=== PATIENT | female | born 1970 | race Hispanic/Latino ===

== ENCOUNTER 2018-12-22 08:52 | Emergency (ER) | payer BC ==
[2018-12-22] MEDS ORDERED: ASPIRIN 325 MG TABLET ONE (09:07)
[2018-12-22 09:33] LABS: INR 0.98 (0.85-1.15); PARTIAL THROMBOPLASTIN TIME 26.1 SEC (26.3-35.5); PROTHROMBIN TIME 10.3 SEC (9.6-11.6)
[2018-12-22 10:00] LABS: BASOPHILS % (AUTO) 0.6 % (0.0-5.0); EOSINOPHILS % (AUTO) 1.4 % (0.0-8.0); HEMATOCRIT 34.8 % (36-48); LYMPHOCYTES % (AUTO) 28.9 % (21.0-51.0); MEAN CORPUSCULAR HEMOGLOBIN 26.8 pg (27.0-33.0); MEAN CORPUSCULAR HGB CONC 32.9 g/dL (32.0-36.0); MEAN CORPUSCULAR VOLUME 81.6 fL (79-99); MONOCYTES % (AUTO) 8.9 % (3.0-13.0); NEUTROPHILS % (AUTO) 60.2 % (40.0-77.0); PLATELET COUNT (AUTO) 179 K/uL (130-400); RED BLOOD CELL COUNT(AUTO) 4.27 MIL/uL (4.00-5.50); RED CELL DISTRIBUTION WIDTH 14.4 % (11.0-15.5); WHITE BLOOD COUNT (AUTO) 4.6 K/uL (4.8-10.8)
== END 2018-12-22 11:30 | disposition home or self-care (01) ==
LOC: EDH 08:52
DX: K21.9 Gastro-esophageal reflux disease without esophagitis (principal); R07.89 Other chest pain; Z98.51 Tubal ligation status
CPT/HCPCS: 36415; 71045; 84484; 85025; 85610; 85730; 93005

== ENCOUNTER 2019-10-17 12:00 | Observation (INO) | payer BC ==
[~2019-10-17] VITALS: Ht 163.8 cm; Wt 70.7 kg
[2019-10-17 13:29] LABS: BASOPHILS % (AUTO) 0.6 % (0.0-5.0); EOSINOPHILS % (AUTO) 1.1 % (0.0-8.0); HEMATOCRIT 35.1 % (36-48); LYMPHOCYTES % (AUTO) 17.7 % (21.0-51.0); MEAN CORPUSCULAR HEMOGLOBIN 25.9 pg (27.0-33.0); MEAN CORPUSCULAR HGB CONC 31.1 g/dL (32.0-36.0); MEAN CORPUSCULAR VOLUME 83.4 fL (79-99); MONOCYTES % (AUTO) 10.1 % (3.0-13.0); NEUTROPHILS % (AUTO) 70.2 % (40.0-77.0); PLATELET COUNT (AUTO) 219 K/uL (130-400); RED BLOOD CELL COUNT(AUTO) 4.21 MIL/uL (4.00-5.50); RED CELL DISTRIBUTION WIDTH 14.1 % (11.0-15.5); WHITE BLOOD COUNT (AUTO) 6.3 K/uL (4.8-10.8)
[2019-10-17 14:13] VITALS: BP 112/57
--- NOTE | 2019-10-17 18:34 | NUR ---
LABS H/H 10.9. 35.[address] ELLIS, NO FURTHER ORDERS.
[2019-10-18] VITALS (20 sets, daily range): BP systolic 102–139; BP diastolic 56–96
[2019-10-18] MEDS ORDERED: LACTATED RINGERS 1000ML 1,000 ML IV SCH (08:00)
[2019-10-18] MEDS: CEFAZOLIN SODIUM 1 GM VIAL IVP ONE ×2 (09:07→13:10)
[2019-10-18] MEDS: CALDOLOR 800MG+NS 250ML 250 ML IV PRN ×2 (09:32→13:00)
[2019-10-18] MEDS ORDERED: DEXAMETHASONE SOD PHOSPHATE 10MG/ML 1ML VIAL ONE (09:56)
[2019-10-18] MEDS ORDERED: PROPOFOL 10 MG/ML 20ML VIAL IV ONE (09:56)
[2019-10-18] MEDS ORDERED: NEOSTIGMINE 5MG/5ML SYR IV ONE (09:56)
[2019-10-18] MEDS ORDERED: SUCCINYLCHOLINE 200MG/10ML SYR ONE (09:56)
[2019-10-18] MEDS ORDERED: MIDAZOLAM HCL 1 MG/ML 2ML VIAL ONE (09:56)
[2019-10-18] MEDS ORDERED: LIDOCAINE PF 2% 5ML ABBOJECT ONE (09:56)
[2019-10-18] MEDS ORDERED: ONDANSETRON HCL 4 MG/2 ML VIAL ONE (09:56)
[2019-10-18] MEDS ORDERED: GLYCOPYRROLATE 1 MG/5 ML SYRINGE ONE ×3 (09:56→15:30)
[2019-10-18] MEDS ORDERED: FENTANYL CITRATE PF 50 MCG/1 ML 2ML VIAL ONE ×3 (09:57→15:04)
[2019-10-18] MEDS ORDERED: ROCURONIUM 10MG/1ML SYR 10 MG/ML ML ONE (09:57)
[2019-10-18] MEDS ORDERED: BUPIVACAINE/PF 0.25% 30ML VIAL IJ ONE (10:52)
[2019-10-18] MEDS ORDERED: LIDOCAINE 1%-EPI 1:100,000 20 ML VIAL IJ ONE (10:52)
[2019-10-18] MEDS ORDERED: DEXTROSE 5 %-0.45 % NACL 1,000 ML IV PRN (14:54)
[2019-10-18] MEDS ORDERED: PROMETHAZINE HCL 25 MG/ML 1ML AMPULE IM PRN (15:00)
[2019-10-18] MEDS ORDERED: BISACODYL 10 MG SUPP.RECT RC PRN (15:00)
[2019-10-18] MEDS ORDERED: MORPHINE SULFATE 4 MG/1ML SYG ONE (15:41)
[2019-10-18] MEDS: ACETAMINOPHEN-CODEINE 300/30MG TAB PO PRN (18:14)
[2019-10-18] MEDS: CALDOLOR 800MG+NS 250ML 250 ML IV SCH (21:26)
[2019-10-18] MEDS: SIMETHICONE 80 MG TAB.CHEW PO PRN (21:27)
[2019-10-18] MEDS: DOCUSATE SODIUM 100 MG CAP PO PRN (21:27)
[2019-10-18] MEDS: CEFAZOLIN SODIUM 1 GM VIAL IVP SCH (21:27)
[2019-10-19 03:30] VITALS: BP 114/67
[2019-10-19] MEDS: CEFAZOLIN SODIUM 1 GM VIAL IVP SCH (05:07)
[2019-10-19] MEDS: CALDOLOR 800MG+NS 250ML 250 ML IV SCH (05:08)
[2019-10-19 06:52] LABS: HEMATOCRIT 29.8 % (36-48); MEAN CORPUSCULAR HGB CONC 30.9 g/dL (32.0-36.0); MEAN CORPUSCULAR VOLUME 84.2 fL (79-99); PLATELET COUNT (AUTO) 204 K/uL (130-400); RED BLOOD CELL COUNT(AUTO) 3.54 MIL/uL (4.00-5.50); RED CELL DISTRIBUTION WIDTH 13.6 % (11.0-15.5); WHITE BLOOD COUNT (AUTO) 10.8 K/uL (4.8-10.8)
[2019-10-19 07:45] VITALS: BP 105/65
[2019-10-19] MEDS: DOCUSATE SODIUM 100 MG CAP PO PRN (08:03)
[2019-10-19] MEDS: SIMETHICONE 80 MG TAB.CHEW PO PRN (08:03)
[2019-10-19] MEDS: ACETAMINOPHEN-CODEINE 300/30MG TAB PO PRN (08:04)
[2019-10-19 11:22] VITALS: BP 110/60
== END 2019-10-19 14:45 | disposition home or self-care (01) ==
LOC: EDSTATUS 12:00 → DAHIP 10-18 07:25 → WSH 10-18 16:15
PROC: 0UT9FZZ Resection of Uterus, Via Natural or Artificial Opening With Percutaneous Endoscopic Assistance (ICD-10-PCS; principal; 2019-10-18 13:26)
DX: D25.9 Leiomyoma of uterus, unspecified (principal); N92.1 Excessive and frequent menstruation with irregular cycle; R10.2 Pelvic and perineal pain
CPT/HCPCS: 36415 ×2; 58550; 84703; 85025; 85027; 86850; 86900; 86901; 88307; 96365; 96366 ×2; 96375; 96376; A4213; A4215 ×3; A4221; A4222; A4223; A4344; A4510; A4600; A4649 ×2; A4663; A6260; C1769 ×2; G0168; G0378 ×19; J0330; J0690 ×4; J1100; J1741 ×4; J2001; J2250; J2270; J2405; J2704; J2710; J3010 ×3; J3490 ×5; J7120 ×2

== ENCOUNTER 2019-12-26 19:43 | Emergency (ER) | payer BC ==
[2019-12-26 20:21] LABS: BASOPHILS % (AUTO) 0.8 % (0.0-5.0); EOSINOPHILS % (AUTO) 0.9 % (0.0-8.0); HEMATOCRIT 36.3 % (36-48); LYMPHOCYTES % (AUTO) 18.2 % (21.0-51.0); MEAN CORPUSCULAR HEMOGLOBIN 25.3 pg (27.0-33.0); MEAN CORPUSCULAR HGB CONC 31.7 g/dL (32.0-36.0); NEUTROPHILS % (AUTO) 71.9 % (40.0-77.0); PLATELET COUNT (AUTO) 149 K/uL (130-400); RED BLOOD CELL COUNT(AUTO) 4.54 MIL/uL (4.00-5.50); RED CELL DISTRIBUTION WIDTH 14.6 % (11.0-15.5); WHITE BLOOD COUNT (AUTO) 8.6 K/uL (4.8-10.8)
[2019-12-26] MEDS ORDERED: PROCHLORPERAZINE EDISYLATE 10 MG/2 ML VIAL ONE (20:31)
[2019-12-26 20:49] LABS: CARBON DIOXIDE 27 mmol/L (21-32); CHLORIDE 102 mmol/L (101-111); CREATININE 0.8 mg/dL (0.5-1.5); GLOMERULAR FILTR. RATE CALC 81 mL/min (>60); GLUCOSE,RANDOM 92 mg/dL (70-105); POTASSIUM 3.8 mmol/L (3.5-5.1); SODIUM SERUM 137 mmol/L (136-145); UREA NITROGEN, BLOOD 17 mg/dL (7-18)
[2019-12-26 20:53] LABS: ALANINE AMINOTRANSFERASE 16 U/L (12-78); ASPARTATE AMINOTRANSFERASE 21 U/L (10-37); BILIRUBIN,TOTAL 0.1 mg/dL (0.2-1.0); CREATINE KINASE, TOTAL 46 U/L (21-232)
[2019-12-26 21:08] LABS: BILIRUBIN,DIRECT < 0.1 mg/dL (0.0-0.3)
== END 2019-12-26 21:45 | disposition home or self-care (01) ==
LOC: EDH 19:43
DX: S09.90XA Unspecified injury of head, initial encounter (principal); R55 Syncope and collapse; Z90.49 Acquired absence of other specified parts of digestive tract; Z90.710 Acquired absence of both cervix and uterus; X58.XXXA Exposure to other specified factors, initial encounter; Y93.89 Activity, other specified; Y92.89 Other specified places as the place of occurrence of the external cause; Y99.8 Other external cause status
CPT/HCPCS: 36415; 70450; 80048; 80076; 82550; 84484; 85025; 93005; 96361; 96374; 99285; J0780